=== PATIENT | female | born 1970 | race Caucasian/White ===

== ENCOUNTER 2018-09-16 11:09 | Day surgery (SDC) | payer OTHER ==
[~2018-09-16] VITALS: Ht 162.6 cm; Wt 66.8 kg
[~2018-09-16 11:09] MED LIST: CAMRESE 0.15-01 EAC1 PO; LOSA50 PO; VENL75ER PO
--- NOTE | 2018-09-16 12:45 | NUR ---
09/16/18 1245 Kalyan Arias UPDATED PT ON DELAY. WARM BLANKET PROVIDED. MAGAZINES PROVIDED. PT HAPPY AFTER THIS & STATES AN UNDERSTANDING. CALL LIGHT WITHIN REACH.
--- NOTE | 2018-09-16 13:57 | NUR ---
09/16/18 [email or web address] Heather Mckenna SIMETHICONE USED DURING PROCEDURE.
== END 2018-09-16 14:31 | disposition home or self-care (01) ==
LOC: ORSCSDS 11:09
PROVIDERS: Internal Medicine Gastroenterology
PROC: 0DBN8ZX Excision of Sigmoid Colon, Via Natural or Artificial Opening Endoscopic, Diagnostic (ICD-10-PCS; principal; 2018-09-16 12:30)
DX: Z12.11 Encounter for screening for malignant neoplasm of colon (principal); K63.5 Polyp of colon; K57.30 Diverticulosis of large intestine without perforation or abscess without bleeding; I10 Essential (primary) hypertension; K21.9 Gastro-esophageal reflux disease without esophagitis; Z79.899 Other long term (current) drug therapy
CPT/HCPCS: 88305; J2704; J7120